=== PATIENT | male | born 1950 | race Caucasian/White ===

== ENCOUNTER 2018-01-20 09:56 | Emergency (ER) | payer MEDICARE, BC ==
[2018-01-20] MEDS ORDERED: FAMOTIDINE INJ/PF 20 MG/2 ML SDV IV ONE (10:15)
[2018-01-20] MEDS ORDERED: METHYLPREDNISOLONE INJ 125 MG/2 ML SDV IV ONE (10:15)
[2018-01-20] MEDS ORDERED: DIPHENHYDRAMINE HCL 50 MG/ML VIAL IV ONE (10:15)
[2018-01-20] MEDS ORDERED: TAMSULOSIN HCL 0.4 MG CAP.SR.24H PO ONE (10:15)
[2018-01-20] MEDS ORDERED: NORMAL SALINE 1000 ML 1,000 ML IV PRN (10:16)
[2018-01-20] MEDS ORDERED: LIDOCAINE 2% URO-JET 5 ML KIT MM ONE (10:43)
--- NOTE | 2018-01-20 10:43 | ER Document Report ---
ED General - General Mode of Arrival: Ambulatory Information source: Patient TRAVEL OUTSIDE OF THE [place] IN LAST 30 DAYS: No <ANGELICA MARISCAL - Last Filed: 01/20/18 14:05> <JOCELYNE LOWERY - Last Filed: 01/20/18 14:47> - General Chief Complaint: Inability to Void Stated Complaint: URINARY ISSUE Time Seen by Provider: 01/20/18 10:14 Notes: 67-year-old male that presents to the emergency department today with complaints of upper lip swelling. Patient states that this upper lip swelling began around 0830 this morning. Patient also mentions that he has had an inability to void over the last few days. 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 Patient states he stopped taking lisinopril a few days ago thinking that was what caused his urinary obstruction. Patient states he was not bitten by anything to his knowledge. (ANGELICA MARISCAL) The patient does not have a primary care provider, he had been to an urgent care for the lisinopril which he has been taking for a few years, but has not taken any in the past few days. (JOCELYNE LOWERY) - Related Data Allergies/Adverse Reactions: No Known Allergies Allergy (Verified 01/20/18 09:58) Past Medical History - General Information source: Patient - Social History Smoking Status: Former Smoker Chew tobacco use (# tins/day): No Frequency of alcohol use: Heavy Drug Abuse: None Lives with: Family Family History: Reviewed & Not Pertinent Patient has suicidal ideation: No Patient has homicidal ideation: No - Past Medical History Cardiac Medical History: Reports: Hx Hypercholesterolemia, Hx Hypertension Past Surgical History: Reports: Hx Orthopedic Surgery - R hip, ACL <ANGELICA MARISCAL - Last Filed: 01/20/18 14:05> Review of Systems - Review of Systems Constitutional: No symptoms reported EENT: See HPI, Other - upper lip swelling Cardiovascular: No symptoms reported Respiratory: No symptoms reported Gastrointestinal: No symptoms reported Genitourinary: See HPI, Other - urinary obstruction Male Genitourinary: No symptoms reported Musculoskeletal: No symptoms reported Skin: No symptoms reported Hematologic/Lymphatic: No symptoms reported Neurological/Psychological: No symptoms reported -: Yes All other systems reviewed and negative <ANGELICA MARISCAL - Last Filed: 01/20/18 14:05> Physical Exam <ANGELICA MARISCAL - Last Filed: 01/20/18 14:05> <JOCELYNE LOWERY - Last Filed: 01/20/18 14:47> - Vital signs Vitals: Temp Pulse Resp BP Pulse Ox 97.5 F 87 20 158/92 H 98 01/20/18 10:02 01/20/18 10:02 01/20/18 10:02 01/20/18 10:02 01/20/18 10:02 - Notes Notes: Physical Exam: General: Alert, appears well. HEENT: Normocephalic. Atraumatic. PERRL. Extraocular movements intact. Oropharynx clear. Upper lip edema extending up to the nose. Area just below the nose is hard to touch and tender. No dental decay. Airway is patent. No tongue involvement. Handling secretions appropriately. Neck: Supple. Non-tender. Respiratory: No respiratory distress. Clear and equal breath sounds bilaterally. Cardiovascular: Regular rate and rhythm. Abdominal: Normal Inspection. Non-tender. No distension. Normal Bowel Sounds. Back: Non-tender. No deformity or step off. Extremities: Moves all four extremities. Upper extremities: Normal inspection. Normal ROM. Lower extremities: 1+ pitting edema bilaterally. Normal ROM. Neurological: Normal cognition. AAOx4. Normal speech. Psychological: Normal affect. Normal Mood. Skin: Warm. Dry. Normal color. (ANGELICA MARISCAL) Course - Laboratory Result Diagrams: 01/20/18 10:33 01/20/18 10:33 <ANGELICA MARISCAL - Last Filed: 01/20/18 14:05> - Laboratory Result Diagrams: 01/20/18 10:33 01/20/18 10:33 <JOCELYNE LOWERY - Last Filed: 01/20/18 14:47> - Re-evaluation Re-evalutation: 01/20/18 12:33 The patient's urine does have considerable amount of RBCs, but he thinks that may be related to his multiple attempts to self cath stating he would feel it hit up against his prostate. At this time the upper lip swelling has gone down slightly in the erythema across the lip of the nose is cleared. There is now edema developing in the lower lip. There is no involvement of the tongue or the posterior pharynx at this time. (JOCELYNE LOWERY) - Vital Signs Vital signs: Temp Pulse Resp BP Pulse Ox 97.5 F 87 20 158/92 H 98 01/20/18 10:02 01/20/18 10:02 01/20/18 10:02 01/20/18 10:02 01/20/18 10:02 - Laboratory Laboratory results interpreted by me: 01/20/18 01/20/18 01/20/18 10:14 10:33 10:33 MCH 33.5 H Plt Count 123 L Seg Neutrophils % 81.9 H Lymphocytes % 8.0 L Total Bilirubin 1.6 H Direct Bilirubin 0.9 H Prostate Specific Ag 38.100 H Urine Protein Urine Ketones Urine Blood Urine Urobilinogen 01/20/18 11:00 MCH Plt Count Seg Neutrophils % Lymphocytes % Total Bilirubin Direct Bilirubin Prostate Specific Ag Urine Protein 100 H Urine Ketones 20 H Urine Blood LARGE H Urine Urobilinogen 4.0 H Discharge <ANGELICA MARISCAL - Last Filed: 01/20/18 14:05> <JOCELYNE LOWERY - Last Filed: 01/20/18 14:47> - Discharge Clinical Impression: Acute urinary retention, Elevated PSA, greater than or equal to 20 ng/ml Hematuria Qualifiers: Hematuria type: gross Qualified Code(s): R31.0 - Gross hematuria Angioedema Qualifiers: Encounter type: initial encounter Qualified Code(s): T78.3XXA - Angioneurotic edema, initial encounter Additional Instructions: Urinary Retention Urinary retention is inability to empty the bladder. It can result from a urine infection, or from mechanical problems such as an enlarged prostate gland or swelling of the urethra. Drugs or alcohol can also lead to urine retention. The condition is usually treated by passage of a catheter. If the physician thinks the problem will continue, the catheter may be left in place for a few days. Sometimes drugs are used to stimulate the bladder if the physician feels that inadequate bladder contraction is the cause. If the condition leading to the retention is a chronic one, such as an enlarged prostate, you will be referred to a specialist for further care. Call the physician or return if you develop fever, flank or back pain, pain on urination, or recurrent difficulty passing the urine. Angioedema Angioedema is an allergic swelling of the soft tissues of the body. The lips and mouth are most commonly involved. Medicication allergy is a common cause, especially [place] inhibitor medicine (used for blood pressure control). Food, even something you've eaten frequently, can cause angioedema. In many cases it's not obvious what caused the swelling. Acute treatment may include adrenalin and antihistamines. If the cause is known, you must avoid this food or medicine in the future. If angioedema affects your air passages, it can be life-threatening. Return at once if you develop shortness of breath, faintness, severe pain, inability to swallow, or if swelling worsens.swelling worsens. Stop taking the lisinopril. Do not take any other [place] inhibitor drugs. Drink plenty of fluids over the next few days. Take the medications as prescribed. Call [facility] for follow-up appointment next week. Obtain a primary care provider for your ongoing medical care. RETURN TO THE EMERGENCY ROOM IF ANY NEW OR WORSENING SYMPTOMS. Prescriptions: Atenolol [Tenormin] 25 mg PO BID #60 tablet Sulfamethoxazole/Trimethoprim [Septra-Ds 800-160 mg Tablet] 1 tab PO BID #10 tablet Tamsulosin HCl [Flomax 0.4 mg Cap.sr] 0.4 mg PO DAILY #30 cap.sr.24h [facility]: [facility] [[facility]] - Follow up in 3-5 days Scribe Attestation: 01/20/18 11:18 I personally performed the services described in the documentation, reviewed and edited the documentation which was dictated to the scribe in my presence, and it accurately records my words and actions. (JOCELYNE LOWERY) Scribe Documentation - Scribe Written by Baldev:: Baldev Zelaya, 01/20/2018 1411 acting as scribe for Dr.:: Anyi <ANGELICA MARISCAL - Last Filed: 01/20/18 14:05>
[2018-01-20 10:52] LABS: ABSOLUTE EOSINOPHILS # (AUTO) 0.1 10^3/uL (0.0-0.6); ABSOLUTE LYMPHOCYTES (AUTO) 0.8 10^3/uL (0.5-4.7); ABSOLUTE MONOCYTES (AUTO) 0.9 10^3/uL (0.1-1.4); BASOPHILS % (AUTO) 0.2 % (0-2); EOSINOPHILS % (AUTO) 0.6 % (0-6); HEMATOCRIT 42.1 % (37.9-51.0); HEMOGLOBIN 14.9 g/dL (13.5-17.0); MEAN CORPUSCULAR HEMOGLOBIN 33.5 pg (27.0-33.4); MEAN CORPUSCULAR HGB CONC 35.3 g/dL (32.0-36.0); MEAN CORPUSCULAR VOLUME 95 fl (80-97); MONOCYTES % (AUTO) 9.3 % (3-13); PLATELET COUNT 123 10^3/uL (150-450); RED BLOOD COUNT 4.44 10^6/uL (4.35-5.55); RED CELL DISTRIBUTION WIDTH 13.7 % (11.5-14.0); SEGMENTED NEUTROPHILS % (AUTO) 81.9 % (42-78); TOTAL CELLS COUNTED % (AUTO) 100 %; WHITE BLOOD COUNT 9.7 10^3/uL (4.0-10.5)
[2018-01-20 11:05] LABS: ALANINE AMINOTRANSFERASE 46 U/L (21-72); ALBUMIN 3.8 g/dL (3.5-5.0); ALKALINE PHOSPHATASE 93 U/L (38-126); ANION GAP 9 (5-19); ASPARTATE AMINO TRANSFERASE 37 U/L (17-59); BILIRUBIN,DIRECT 0.9 mg/dL (0.0-0.4); BILIRUBIN,TOTAL 1.6 mg/dL (0.2-1.3); BLOOD UREA NITROGEN 16 mg/dL (7-20); CALCIUM 10.1 mg/dL (8.4-10.2); CARBON DIOXIDE 29 mmol/L (22-30); CHLORIDE 102 mmol/L (98-107); GLUCOSE 107 mg/dL (75-110); SODIUM 139.8 mmol/L (137-145); TOTAL PROTEIN 6.8 g/dL (6.3-8.2)
[2018-01-20 11:34] LABS: APPEARANCE,URINE CLOUDY; BILIRUBIN,URINE NEGATIVE (NEGATIVE); COLOR,URINE AMBER; GLUCOSE, URINE NEGATIVE (NEGATIVE); KETONES,URINE 20 mg/dL (NEGATIVE); LEUKOCYTE ESTERASE,URINE NEGATIVE (NEGATIVE); NITRITE,URINE NEGATIVE (NEGATIVE); PROTEIN,URINE 100 mg/dL (NEGATIVE); URINE SPECIFIC GRAVITY 1.027
[2018-01-20 14:32] VITALS: BP 148/84
== END 2018-01-20 15:06 | disposition home or self-care (01) ==
LOC: ER 09:56
DX: T78.3XXA Angioneurotic edema, initial encounter (principal); R33.9 Retention of urine, unspecified; R31.0 Gross hematuria; R97.20 Elevated prostate specific antigen [PSA]; R22.0 Localized swelling, mass and lump, head; I10 Essential (primary) hypertension; Z79.899 Other long term (current) drug therapy; Z87.891 Personal history of nicotine dependence
CPT/HCPCS: 99283; 96361; 51702; 96374; 96375; 36415; 87086; 84153; 85025; 80053; 81001; J1200; J2930; S0028